=== PATIENT | female | born 1970 | race Caucasian/White ===

== ENCOUNTER 2022-10-07 15:45 | Emergency (ER) | payer OTHER, SELFPAY ==
[2022-10-07] VITALS (21 sets, daily range): BP systolic 133–176; BP diastolic 66–96; PULSE 60–72; RESP 14–39; TEMP 36.6; O2SAT 87–97; BMI 28.6
--- NOTE | 2022-10-07 15:42 | DI.RAD.S_ITS ---
PROCEDURE: XR SHOULDER RT MIN 2V INDICATIONS: dislocation TECHNIQUE: 2 views of the shoulder were acquired. COMPARISON: None. FINDINGS: Bones: Humeral head is dislocated anteroinferiorly to the glenoid. No suspicious bony lesions. Visualized ribs appear intact. Soft tissues: No suspicious soft tissue calcifications. IMPRESSION: Shoulder dislocation. Dictated by: Alberto Palomino M.D. on 10/07/2022 at 15:06 Approved by: Alberto Palomino M.D. on 10/07/2022 at 15:07
[2022-10-07] MEDS: ONDANSETRON 4 MG/2 ML INJ IV (15:52)
[2022-10-07] MEDS: propofoL 200 MG/20 ML VIAL IV (16:08)
--- NOTE | 2022-10-07 16:13 | DI.RAD.S_ITS ---
PROCEDURE: XR SHOULDER RT MIN 2V INDICATIONS: post reduction TECHNIQUE: 2 views of the shoulder were acquired. COMPARISON: [facility], , XR SHOULDER RT MIN 2V, 10/07/2022, 15:38. FINDINGS: Bones: Humeral head has been relocated. There is a mildly displaced fracture of the humeral head. Soft tissues: No suspicious soft tissue calcifications. IMPRESSION: 1. Relocation of humeral head. 2. Humeral head fracture. Dictated by: Alberto Palomino M.D. on 10/07/2022 at 15:32 Approved by: Alberto Palomino M.D. on 10/07/2022 at 15:33
--- NOTE | 2022-10-07 16:27 | ED_ITS ---
HPI - Extremity Injury (Upper) General Chief Complaint: Extremity Injury, Upper Stated Complaint: dislocated shoulder Time Seen by Provider: 10/07/22 15:48 Source: patient and EMS Mode of arrival: EMS History of Present Illness HPI narrative: 52-year-old female nonsmoker without chronic medical history presents by air medical transport for evaluation of right shoulder injury. She was out in 1 of the [facility] and helping to dark boat. She was reaching out with her right arm and felt a pulling and tugging sensation and then a pop. She now has an obvious deformity and decreased range of motion secondary to pain. She had some numbness in her hand initially but that had improved prior to her arrival. On scene medics had given fentanyl 100 mcg prior to her arrival and air medical transport gave Dilaudid in route. Related Data Previous Rx's Medication Instructions Recorded hydrocodone 5 mg-acetaminophen 325 1 tab PO Q4-6H PRN pain #10 tabs 10/07/22 mg tablet hydrocodone 5 mg-acetaminophen 325 1 tab PO Q4-6H PRN pain #20 tabs 10/07/22 mg tablet Allergies Allergy/AdvReac Type Severity Reaction Status Date / Time No Known Drug Allergies Allergy Verified 10/07/22 15:45 Review of Systems Review of Systems Narrative: GENERAL: Denies chills, fatigue, malaise, fever, sweats. HEENT: Denies sinus pain, ear pain, sore throat, difficulty swallowing, dizziness. RESPIRATORY: Denies dyspnea, cough, wheezing, hemoptysis, sputum. CARDIOVASCULAR: Denies chest pain, palpitations, orthopnea, edema, GASTROINTESTINAL: Denies nausea, vomiting, abdominal pain, diarrhea, constipation, melena. : Denies dysuria, frequency, incontinence, hematuria, urinary retention. MUSCULOSKELETAL: See HPI SKIN: Denies rash, skin lesions, or other NEUROLOGIC: Denies weakness, headache, numbness, change in speech, confusion, seizures, incoordination. PSYCHIATRIC: No concerning psychosocial issues. 12 point review of systems is negative except for those stated above Patient History Social History Smoking Status: Never smoker Smoking Status: Never smoker Substance Use Type: does not use Exam Narrative Exam Narrative: GENERAL: [ 52] year old patient appears stated age. Well-developed patient, in mild distress. HEAD: Atraumatic. Normocephalic. EYES: Pupils equal round and reactive. Extraocular motions intact. No scleral icterus. No injection or drainage. ENT: Nose without bleeding, purulent drainage. Throat without erythema, tonsillar hypertrophy or exudate. Airway patent. NECK: Trachea midline. Non tender CARDIOVASCULAR: Regular rate and rhythm without murmurs, gallops, or rubs. RESPIRATORY: Clear to auscultation. Breath sounds equal bilaterally. No wheezes, rales, or rhonchi. GASTROINTESTINAL: Abdomen soft, non-tender, nondistended. EXTREMITIES: obvious deformity consistent with shoulder dislocation, decreased range of motion secondary to pain and mechanical obstruction, sensation and cap refill intact BACK: Nontender without deformity or crepitance. No flank tenderness. NEURO: AOx3. SKIN: No rash or erythema of visible areas Initial Vital Signs Initial Vital Signs: Vital Signs Temperature 97.8 F 10/07/22 15:52 Pulse Rate 66 10/07/22 15:52 Respiratory Rate 18 10/07/22 15:52 Blood Pressure 149/74 H 10/07/22 15:52 Pulse Oximetry 95 10/07/22 15:52 Oxygen Delivery Method Room Air 10/07/22 15:52 Procedures Orthopedic Joint Reduction Joint #1: Time Out Performed: Yes Side: right Joint Reduction Location: shoulder Shoulder Technique Used (if applicable): traction/counter-traction and external rotation Post-reduction neuro exam: intact Post-reduction vascular: intact Post Reduction X-Ray Obtained: Yes Post Reduction X-Ray Results: reduced Splint Applied: Yes Patient Tolerated Procedure: Well Orthopedic Splinting/Casting Injury #1: Side: right Upper Extremity Injury Location: shoulder Upper Extremity Immobilizer: sling/shoulder immobilizer Post splinting neuro exam: intact Post splinting vascular exam: intact Placed by: Nursing Course Orders Ordered: ED Orders 10/07/22 15:42 XR shoulder RT min 2V Stat 10/07/22 16:13 XR shoulder RT min 2V Stat Discontinued Medications Hydrocodone Bitart/Acetaminophen (Hydrocodone/Acet 5/325 Prepack) 1 bottle MISC SEEINSTR ONE Stop: 10/07/22 16:41 Last Admin: 10/07/22 16:57 Dose: 1 bottle Documented By: RB Ondansetron HCl (Ondansetron 4 Mg/2 Ml Inj) 4 mg IV NOW ONE Stop: 10/07/22 15:49 Last Admin: 10/07/22 15:52 Dose: 4 mg Documented By: AILYN Ondansetron HCl (Ondansetron 4 Mg Odt Prepack) 1 bottle MISC SEEINSTR ONE Stop: 10/07/22 16:41 Last Admin: 10/07/22 16:57 Dose: 1 bottle Documented By: AILYN Propofol (Propofol 200 Mg/20 Ml Vial) 200 mg IV NOW ONE Stop: 10/07/22 15:49 Last Admin: 10/07/22 16:08 Dose: 200 mg Documented By: MARKUS Vital Signs Vital signs: Vital Signs - 8 hr 10/07/22 15:52 10/07/22 15:55 10/07/22 15:55 Temperature 97.8 F Pulse Rate 66 63 Respiratory Rate 18 30 H Blood Pressure 149/74 H 140/96 H Pulse Oximetry 95 93 Oxygen Delivery Method Room Air Oxygen Flow Rate 10/07/22 16:05 10/07/22 16:00 10/07/22 16:00 Temperature Pulse Rate 66 63 Respiratory Rate 14 25 H Blood Pressure 164/79 H Pulse Oximetry 96 Oxygen Delivery Method Oxygen Flow Rate 10/07/22 16:05 10/07/22 16:05 10/07/22 16:10 Temperature Pulse Rate 62 71 Respiratory Rate 28 H 34 H Blood Pressure 176/89 H Pulse Oximetry 97 95 Oxygen Delivery Method Oxygen Flow Rate 2 2 10/07/22 16:10 10/07/22 16:16 10/07/22 16:16 Temperature Pulse Rate 64 Respiratory Rate 18 Blood Pressure 176/94 H 137/66 Pulse Oximetry 87 L Oxygen Delivery Method Oxygen Flow Rate 10/07/22 16:21 10/07/22 16:21 10/07/22 16:26 Temperature Pulse Rate 60 60 Respiratory Rate 39 H 17 Blood Pressure 150/71 H Pulse Oximetry 89 L 96 Oxygen Delivery Method Room Air Oxygen Flow Rate 0 10/07/22 16:26 10/07/22 16:30 10/07/22 16:30 Temperature Pulse Rate 60 Respiratory Rate 31 H Blood Pressure 165/72 H 149/74 H Pulse Oximetry 97 Oxygen Delivery Method Oxygen Flow Rate 10/07/22 16:35 10/07/22 16:35 Temperature Pulse Rate 62 Respiratory Rate 27 H Blood Pressure 148/83 H Pulse Oximetry 95 Oxygen Delivery Method Oxygen Flow Rate MDM - Extremity Injury (Upper) MDM Narrative Medical decision making narrative: [52] year old patient presents with shoulder dislocation Multiple etiologies for patient's symptoms considered including, but not limited to: [ dislocation versus fracture versus other] Primary Historian: patient Imaging reviewed: initial x-ray demonstrates anterior dislocation, subsequent x- ray confirms reduction Consultations: Patient's symptoms improved over duration of stay with above-stated therapies. Findings and discharge diagnosis discussed with patient/family followed by verbalization of understanding Return precautions discussed with patient/family whom verbalize understanding of diagnosis and plan Discharge Plan Departure Patient Disposition: Home Clinical Impression: Anterior shoulder dislocation Instructions: DI for Shoulder Dislocation Activity Restrictions/Additional Instructions: *You have been diagnosed with [ shoulder dislocation] *What to do: *Please continue to take your regular medications as directed. [ x] New medication prescriptions sent to your pharmacy: [[facility] in [place] ] [ ] New medication written as a paper prescription [x] Tylenol and occasional Motrin for pain *Please follow up with [Barbara ] of [facility] in 2-3 days, call for an appointment. Let them know you were seen in the Emergency Department and that we ask that you be seen in follow up. We will electronically transmit a record of today's note if your PCP is in our system *Return to Emergency Department if you should have any new, worsening or concerning symptoms, such as [worsening pain, significant swelling, cold extremities, numbness, tingling, weakness or other bothersome symptoms Splint Care: Keep splint clean and dry. Elevated affected body part to decrease swelling. OK to use ice pack on the affected body part. Use for 15-20 minutes each time, for 5-6x per day. Prescriptions: New hydrocodone-acetaminophen 5-325 mg tablet 1 tab PO Q4-6H PRN (Reason: pain) Qty: 10 0RF hydrocodone-acetaminophen 5-325 mg tablet 1 tab PO Q4-6H PRN (Reason: pain) Qty: 20 0RF Referrals: Ricci Jimenez MD [Physician] - Stand Alone Forms: Patient Portal/API
[2022-10-07] MEDS: ONDANSETRON 4 MG ODT PREPACK 1 BOTTLE MISC (16:57)
[2022-10-07] MEDS: HYDROCODONE/ACET 5/325 PREPACK 1 BOTTLE MISC (16:57)
== END 2022-10-07 17:42 | disposition home or self-care (01) ==
PROVIDERS: Emergency Provider Emergency Medicine; PCP Family Medicine
DX: S43.084A Other dislocation of right shoulder joint, initial encounter (principal)
CPT/HCPCS: 23650; 73030; 96374; 99152; 99284; J2405; J2704

== ENCOUNTER → 2022-10-31 10:48 | Outpatient (CLI) | payer OTHER, SELFPAY ==
--- NOTE | 2022-10-31 | DI.RAD.S_ITS ---
PROCEDURE: FL SHOULDER INJECTION MR/CT RT INDICATIONS: Right glenoid tear COMPARISON: None. TECHNIQUE: The indications, alternatives, benefits, risks, and complications of the procedure were explained to the patient. Written informed consent was obtained and placed in the chart. The shoulder was examined fluoroscopically and a site for needle placement chosen for entry into the glenohumeral joint from an anterior approach. The skin was prepped and draped in a sterile fashion, and 1% lidocaine infiltrated from skin down to joint capsule. A spinal needle was inserted into the glenohumeral joint, and a small amount of iodinated contrast media injected to confirm intra-articular placement of the needle tip. This was followed by approximately 12 mL dilute solution of a gadolinium containing MR contrast agent. The needle was removed and a dressing was applied. The patient was given postprocedural instructions and sent to the MR suite for MR imaging. FINDINGS: A single fluoroscopic spot image demonstrates intra-articular location of injected iodinated contrast. IMPRESSION: Successful fluoroscopically guided administration of dilute Gadolinium solution into the shoulder joint for MR arthrogram. Dictated by: Luis Eduardo Wesley M.D. on 10/31/2022 at 14:15 Approved by: Luis Eduardo Wesley M.D. on 10/31/2022 at 14:15
--- NOTE | 2022-10-31 | DI.MRI.S_ITS ---
PROCEDURE: MR SHOULDER RT W CON INDICATIONS: Right glenoid tear TECHNIQUE: After the administration of 12 mL of dilute intra-articular Gadolinium contrast, oblique coronal T1 and T2 spin echo with fat saturation, oblique sagittal T1 spin echo with and without fat saturation, oblique sagittal T2 fast spin echo with fat saturation, axial T1 spin echo with fat saturation through the shoulder. COMPARISON: [facility], CR, XR SHOULDER RT MIN 2V, 10/07/2022, 16:09. FINDINGS: Image quality: Excellent. Rotator cuff: The supraspinatus, infraspinatus, and subscapularis tendons appear intact throughout. No rotator cuff muscle atrophy on sagittal images. Bones and bursae: There is a impacted, moderately displaced comminuted fracture of the humeral head with moderate underlying ill-defined T2 signal elevation. Moderate acromioclavicular joint degeneration. The acromion demonstrates conventional anatomy, without an os acromiale. Capsule and soft tissues: The labrum and glenohumeral ligaments appear intact. The long head of the biceps tendon demonstrates normal location and morphology. The rotator interval appears normal, without fibrosis. The coracohumeral ligament is of normal thickness. No intra-articular bodies. IMPRESSION: 1. Hill-Sachs fracture of the humeral head as above. 2. No evidence of labral tear nor glenoid fracture. 3. Acromioclavicular joint osteoarthritis. Dictated by: Alberto Palomino M.D. on 10/31/2022 at 12:15 Transcribed by: SAMRA on 10/31/2022 at 12:18 Approved by: Alberto Palomino M.D. on 10/31/2022 at 16:49
== END ==
PROVIDERS: PCP Family Medicine; Referring Provider Physician Assistant; Visit Provider Physician Assistant
DX: S42.291A Other displaced fracture of upper end of right humerus, initial encounter for closed fracture (principal); M19.011 Primary osteoarthritis, right shoulder; X58.XXXA Exposure to other specified factors, initial encounter
CPT/HCPCS: 23350; 73222; 77002